=== PATIENT | female | born 1965 | race Hispanic/Latino ===

== ENCOUNTER 2024-08-04 14:00 | Inpatient (IN) | payer SELFPAY ==
[~2024-08-04] VITALS: Ht 154.9 cm; Wt 94.3 kg
[~2024-08-04 14:00] MED LIST: IBUP-2077 PO; LEVO750T68 PO; METF-526 PO; ONDA-245 PO
[2024-08-04 14:51] LABS: APPEARANCE,URINE TURBID (CLEAR); BILIRUBIN,URINE NEGATIVE (NEGATIVE); COLOR,URINE DARK-BROWN (YELLOW); GLUCOSE, URINE (UA) NEGATIVE (NEGATIVE); KETONES,URINE NEGATIVE (NEGATIVE); LEUKOCYTE ESTERASE ,URINE 500 Leu/uL (NEGATIVE); NITRATE,URINE NEGATIVE (NEGATIVE); OCCULT BLOOD,URINE LARGE (NEGATIVE); PROTEIN,URINE 300 mg/dL (NEGATIVE); UROBILINOGEN,URINE 0.2 mg/dL (0.2-1.0)
[2024-08-04 14:53] LABS: ADD UA MICROSCOPIC YES
[2024-08-04 14:55] LABS: BASOPHILS # (AUTO) 0.07 K/uL (0.00-0.20); BASOPHILS % (AUTO) 0.4 % (0.0-5.0); EOSINOPHILS # (AUTO) 0.09 K/uL (0.00-0.70); EOSINOPHILS % (AUTO) 0.5 % (0.0-8.0); IMMATURE GRANULOCYTE ABSOLUTE 0.13 K/uL (0-1); LYMPHOCYTES # (AUTO) 2.5 K/uL (1.0-4.8); MEAN CORPUSCULAR HEMOGLOBIN 24.3 pg (27.0-33.0); MEAN CORPUSCULAR HGB CONC 31.3 g/dL (32.0-36.0); MEAN CORPUSCULAR VOLUME 77.5 fL (79-99); MONOCYTES # (AUTO) 0.9 K/uL (0.1-1.0); MONOCYTES % (AUTO) 5.6 % (3.0-13.0); NEUTROPHILS # (AUTO) 12.8 K/uL (1.8-7.7); NEUTROPHILS % (AUTO) 77.7 % (40.0-77.0); RED BLOOD CELL COUNT(AUTO) 3.87 MIL/uL (4.00-5.50); RED CELL DISTRIBUTION WIDTH 15.8 % (11.0-15.5); WHITE BLOOD COUNT (AUTO) 16.5 K/uL (4.8-10.8)
[2024-08-04] MEDS: 0.9%NACL 1000ML 1,000 ML IV SCH ×3 (15:00→22:42)
[2024-08-04 15:04] LABS: WBC CLUMP MANY /HPF (0-1); WBC,URINE TNTC /HPF (0-1)
[2024-08-04 15:10] LABS: CREATININE 1.3 mg/dL (0.5-1.0); POTASSIUM 4.1 mmol/L (3.5-5.1)
[2024-08-04 15:13] LABS: PLATELET COUNT (AUTO) 818 K/uL (130-400)
[2024-08-04] MEDS ORDERED: IOHEXOL-350 75 ML VIAL IV ONE (15:18)
[2024-08-04 16:07] LABS: BAND NEUTROPHILS % (MANUAL) 4 % (0-2); LYMPHOCYTES % (MANUAL) 11 % (22-44); MAN.DIFF COMMENT-IMPRESSION MANUAL DIFFERENTIAL; MONOCYTES % (MANUAL) 7 % (2-9); SEGMENTED NEUTROPHILS % 78 % (40-70); TOTAL CELLS COUNTED 100; WBC MORPHOLOGY CONSISTENT W/DIFF
[2024-08-04] MEDS: ZOSYN 3.375GM +NS 50ML IV SCH (16:20)
[2024-08-04] MEDS ORDERED: PoTASSium chloRIDE 20MEQ/100ML 100 ML IV PRN (18:00)
[2024-08-04] MEDS ORDERED: PoTASSium chl 10% ELIXIR 20MEQ 20 MEQ/15 ML UDCUP PO PRN (18:00)
[2024-08-04] MEDS: ondanSETRON 4MG INJ IVP PRN (18:27)
[2024-08-04] MEDS: morPHINE 2 MG SYG IVP PRN (18:27)
[2024-08-04] MEDS: INSULIN humuLIN R 100 UNIT/ML 3ML SQ SCH (21:00)
[2024-08-04] MEDS ORDERED: LEVO50CA4 PO (21:11)
[2024-08-04] MEDS ORDERED: TAMS-1 PO (21:11)
[2024-08-04] MEDS ORDERED: LINA5TAB PO (21:11)
[2024-08-04] MEDS: FAMOTIDINE 20MG TAB PO SCH (21:25)
[2024-08-04 21:38] VITALS: BP 102/61; PULSE 77; RESP 18; TEMP 98
[2024-08-04 21:48] VITALS: O2SAT 99
[2024-08-04] MEDS: ZOSYN 3.375GM +NS 50ML IVPB SCH (23:14)
[2024-08-04 23:43] VITALS: BP 110/64; PULSE 74; RESP 17; TEMP 98.4
[2024-08-05 04:00] VITALS: BP 99/60; PULSE 77; RESP 16; TEMP 99.6
[2024-08-05] MEDS ORDERED: 0.9%NACL 50ML IV SCH (04:00)
[2024-08-05 06:09] LABS: BASOPHILS # (AUTO) 0.06 K/uL (0.00-0.20); BASOPHILS % (AUTO) 0.4 % (0.0-5.0); EOSINOPHILS # (AUTO) 0.08 K/uL (0.00-0.70); EOSINOPHILS % (AUTO) 0.5 % (0.0-8.0); HEMATOCRIT 25.7 % (36-48); IMMATURE GRANULOCYTE ABSOLUTE 0.14 K/uL (0-1); LYMPHOCYTES # (AUTO) 1.6 K/uL (1.0-4.8); LYMPHOCYTES % (AUTO) 10.4 % (21.0-51.0); MEAN CORPUSCULAR HEMOGLOBIN 24.7 pg (27.0-33.0); MEAN CORPUSCULAR HGB CONC 30.7 g/dL (32.0-36.0); MEAN CORPUSCULAR VOLUME 80.3 fL (79-99); MONOCYTES % (AUTO) 6.5 % (3.0-13.0); NEUTROPHILS # (AUTO) 12.2 K/uL (1.8-7.7); NEUTROPHILS % (AUTO) 81.3 % (40.0-77.0); PLATELET COUNT (AUTO) 642 K/uL (130-400); RED CELL DISTRIBUTION WIDTH 15.6 % (11.0-15.5)
[2024-08-05 06:50] LABS: MAGNESIUM 2.5 mg/dL (1.80-2.40)
[2024-08-05 08:00] VITALS: BP_SYST 104; BP_SYST 125; BP_DIAS 61; PULSE 71; PULSE 87; RESP 18; RESP 19; TEMP 98.5; TEMP 98.7
[2024-08-05 09:00] VITALS: O2SAT 94
[2024-08-05] MEDS: tamSULOsin HCL 0.4 MG CAP.ER.24H PO SCH (10:13)
[2024-08-05 10:46] LABS: RETICULOCYTE % (AUTO) 1.23 % (0.42-2.23)
[2024-08-05 11:19] LABS: % IRON SATURATION 10.8 % (22-44)
[2024-08-05 12:49] VITALS: BP 94/62; PULSE 69; RESP 18; TEMP 98.7
[2024-08-05 16:00] VITALS: BP 97/63; PULSE 71; RESP 16; TEMP 98.3
[2024-08-05] MEDS: traMADol HCL 50 MG TABLET PO PRN (16:33)
[2024-08-05 20:00] VITALS: BP 99/62; PULSE 78; RESP 17; TEMP 99.6; O2SAT 96
[2024-08-06] VITALS (16 sets, daily range): BP systolic 94–104; BP diastolic 46–69; PULSE 63–79; RESP 17–20; TEMP 98.3–100.8; O2SAT 93–97
[2024-08-06 05:18] LABS: BASOPHILS # (AUTO) 0.03 K/uL (0.00-0.20); BASOPHILS % (AUTO) 0.2 % (0.0-5.0); EOSINOPHILS # (AUTO) 0.11 K/uL (0.00-0.70); EOSINOPHILS % (AUTO) 0.7 % (0.0-8.0); HEMATOCRIT 24.5 % (36-48); IMMATURE GRANULOCYTE ABSOLUTE 0.11 K/uL (0-1); LYMPHOCYTES % (AUTO) 13.5 % (21.0-51.0); MEAN CORPUSCULAR HEMOGLOBIN 24.4 pg (27.0-33.0); MEAN CORPUSCULAR HGB CONC 30.6 g/dL (32.0-36.0); MEAN CORPUSCULAR VOLUME 79.8 fL (79-99); MONOCYTES % (AUTO) 6.5 % (3.0-13.0); NEUTROPHILS # (AUTO) 11.6 K/uL (1.8-7.7); NEUTROPHILS % (AUTO) 78.4 % (40.0-77.0); PLATELET COUNT (AUTO) 664 K/uL (130-400); RED BLOOD CELL COUNT(AUTO) 3.07 MIL/uL (4.00-5.50); RED CELL DISTRIBUTION WIDTH 15.9 % (11.0-15.5); WHITE BLOOD COUNT (AUTO) 14.8 K/uL (4.8-10.8)
[2024-08-06 05:41] LABS: ALBUMIN 1.7 g/dL (3.5-5.0); BILIRUBIN,TOTAL 0.3 mg/dL (0.2-1.0); CREATININE 1.2 mg/dL (0.5-1.0); MAGNESIUM 1.9 mg/dL (1.80-2.40); POTASSIUM 3.8 mmol/L (3.5-5.1); TOTAL PROTEIN, SERUM 7.1 g/dL (6.0-8.3)
[2024-08-06] MEDS: levoTHYROxine 50 MCG TABLET PO SCH (05:41)
[2024-08-06] MEDS: MAGNESIUM 2GM PREMIX 50ML 50 ML IV PRN (05:50)
[2024-08-06] MEDS ORDERED: LACTULOSE 20 GM/30 ML UDCUP PO PRN (10:00)
[2024-08-06] MEDS: linAGLIPtin 5 MG TABLET PO SCH (11:44)
[2024-08-06 13:47] LABS: PARTIAL THROMBOPLASTIN TIME 26.5 SEC (26.3-35.5)
[2024-08-06] MEDS ORDERED: FENTanyl CITRate PF 50 MCG/1 ML 2ML VIAL ONE (13:58)
[2024-08-06] MEDS ORDERED: MIDAZOLAM HCL 1 MG/ML 2ML VIAL ONE (13:58)
[2024-08-06 14:11] LABS: INR 1.03 (0.85-1.15); PROTHROMBIN TIME 11.1 SEC (9.6-11.6)
[2024-08-07] VITALS (7 sets, daily range): BP systolic 89–99; BP diastolic 52–62; PULSE 64–71; RESP 18–20; TEMP 97.2–99.1; O2SAT 95–98
[2024-08-07] MEDS: CYANOCOBALAMIN (VITAMIN B-12) 1,000 MCG TABLET PO SCH (09:05)
[2024-08-08] VITALS (8 sets, daily range): BP systolic 102–119; BP diastolic 55–75; PULSE 53–67; RESP 13–18; TEMP 97.2–98.3; O2SAT 97–98
[2024-08-08 06:50] LABS: BASOPHILS # (AUTO) 0.05 K/uL (0.00-0.20); BASOPHILS % (AUTO) 0.4 % (0.0-5.0); EOSINOPHILS # (AUTO) 0.25 K/uL (0.00-0.70); EOSINOPHILS % (AUTO) 2.2 % (0.0-8.0); HEMATOCRIT 25.2 % (36-48); IMMATURE GRANULOCYTE ABSOLUTE 0.11 K/uL (0-1); LYMPHOCYTES % (AUTO) 17.5 % (21.0-51.0); MEAN CORPUSCULAR HEMOGLOBIN 24.3 pg (27.0-33.0); MEAN CORPUSCULAR HGB CONC 30.2 g/dL (32.0-36.0); MEAN CORPUSCULAR VOLUME 80.5 fL (79-99); MONOCYTES # (AUTO) 0.7 K/uL (0.1-1.0); NEUTROPHILS # (AUTO) 8.2 K/uL (1.8-7.7); NEUTROPHILS % (AUTO) 72.9 % (40.0-77.0); PLATELET COUNT (AUTO) 658 K/uL (130-400); RED BLOOD CELL COUNT(AUTO) 3.13 MIL/uL (4.00-5.50); RED CELL DISTRIBUTION WIDTH 15.9 % (11.0-15.5); WHITE BLOOD COUNT (AUTO) 11.2 K/uL (4.8-10.8)
[2024-08-08 07:01] LABS: ALBUMIN 1.6 g/dL (3.5-5.0); BILIRUBIN,TOTAL 0.2 mg/dL (0.2-1.0); CREATININE 1.1 mg/dL (0.5-1.0); POTASSIUM 3.7 mmol/L (3.5-5.1); TOTAL PROTEIN, SERUM 7.2 g/dL (6.0-8.3)
[2024-08-09] MEDS: acetaMINOPHEN 325 MG TAB PO PRN (00:44)
[2024-08-09 04:12] VITALS: BP 115/71; PULSE 60; RESP 15; TEMP 98
[2024-08-09 08:00] VITALS: BP 109/61; PULSE 61; RESP 18; TEMP 97.2
[2024-08-09 10:20] LABS: HEMATOCRIT 27.1 % (36-48); MEAN CORPUSCULAR HGB CONC 31.4 g/dL (32.0-36.0); MEAN CORPUSCULAR VOLUME 79.7 fL (79-99); RED BLOOD CELL COUNT(AUTO) 3.4 MIL/uL (4.00-5.50); WHITE BLOOD COUNT (AUTO) 11.9 K/uL (4.8-10.8)
[2024-08-09 10:28] LABS: CREATININE 1.1 mg/dL (0.5-1.0); POTASSIUM 3.5 mmol/L (3.5-5.1)
[2024-08-09 11:20] VITALS: BP 105/68; PULSE 85; RESP 18; TEMP 98.2
[2024-08-09] MEDS: MEROPENEM 1 GM in 0.9%NACL 100ML 100 ML IVPB SCH (12:22)
[2024-08-09] MEDS ORDERED: COMPOUND IV MISC 1 EACH IVSOLN MISC PRN (12:30)
[2024-08-09 12:46] VITALS: BP 103/84; PULSE 60; RESP 18; TEMP 98.7
[2024-08-09] MEDS: levoFLOXacin 750 MG/D5W 150ML BAG IV SCH (14:24)
[2024-08-09 16:17] VITALS: BP 121/70; PULSE 63; RESP 18; TEMP 98.6
[2024-08-09 20:00] VITALS: BP 107/62; PULSE 73; RESP 19; TEMP 98.1; O2SAT 95
[2024-08-10] VITALS (8 sets, daily range): BP systolic 109–130; BP diastolic 65–74; PULSE 65–75; RESP 16–19; TEMP 98.2–98.5; O2SAT 94–98
[2024-08-10 04:44] LABS: MEAN CORPUSCULAR HEMOGLOBIN 24.3 pg (27.0-33.0); MEAN CORPUSCULAR HGB CONC 30.4 g/dL (32.0-36.0); RED BLOOD CELL COUNT(AUTO) 3.25 MIL/uL (4.00-5.50); RED CELL DISTRIBUTION WIDTH 15.9 % (11.0-15.5); WHITE BLOOD COUNT (AUTO) 11.8 K/uL (4.8-10.8)
[2024-08-10 04:54] LABS: POTASSIUM 3.6 mmol/L (3.5-5.1)
[2024-08-10] MEDS: PoTASSium chloRIDE 20MEQ ER 20 MEQ ERTAB PO PRN (06:33)
[2024-08-10] MEDS: IRON sUCROse COMPLEX 300 MG in 0.9% NACL 250ML 250 ML IV SCH (20:43)
[2024-08-11 04:00] VITALS: BP 131/75; PULSE 76; RESP 19; TEMP 97.5
[2024-08-11 07:55] VITALS: BP 116/66; PULSE 66; RESP 20; TEMP 98.3
[2024-08-11 08:00] VITALS: O2SAT 96
[2024-08-11] MEDS: CYANOCOBALAMIN (VITAMIN B-12) 1000 MCG/ML 1ML VIAL IM SCH (09:31)
[2024-08-11 11:14] VITALS: BP 122/68; PULSE 65; RESP 20; TEMP 97.8
[2024-08-11] MEDS ORDERED: FOLI1 PO (11:33)
[2024-08-11] MEDS ORDERED: FERS325 PO (11:33)
[2024-08-11] MEDS ORDERED: MECO10005 PO (11:33)
[2024-08-11 12:03] LABS: HEMATOCRIT 30.8 % (36-48); MEAN CORPUSCULAR HEMOGLOBIN 24.5 pg (27.0-33.0); MEAN CORPUSCULAR HGB CONC 29.9 g/dL (32.0-36.0); MEAN CORPUSCULAR VOLUME 82.1 fL (79-99); RED BLOOD CELL COUNT(AUTO) 3.75 MIL/uL (4.00-5.50); RED CELL DISTRIBUTION WIDTH 16.4 % (11.0-15.5); WHITE BLOOD COUNT (AUTO) 13.2 K/uL (4.8-10.8)
[2024-08-11 12:12] LABS: POTASSIUM 3.9 mmol/L (3.5-5.1)
[2024-08-11 14:02] VITALS: BP 108/64; PULSE 68; RESP 20; TEMP 97.1
[2024-08-11] MEDS ORDERED: LEVO750T39 PO (17:07)
== END 2024-08-11 19:00 | disposition home or self-care (01) | DRG 872 ==
LOC: EDH 14:00 → EDHIP 14:01 → 3CH 21:24 → WSH 08-06 14:50 → 3BH 08-09 11:50
PROVIDERS: ADMIT Internal Medicine Sleep Medicine; ATTEND Internal Medicine Sleep Medicine
DX: A41.9 Sepsis, unspecified organism (principal); N13.6 Pyonephrosis; D50.9 Iron deficiency anemia, unspecified; E66.9 Obesity, unspecified; L80 Vitiligo; D69.6 Thrombocytopenia, unspecified; D75.838 Other thrombocytosis; E11.65 Type 2 diabetes mellitus with hyperglycemia; I10 Essential (primary) hypertension; N20.0 Calculus of kidney; Z87.442 Personal history of urinary calculi; Z91.199 Patient's noncompliance with other medical treatment and regimen due to unspecified reason; Z68.39 Body mass index [BMI] 39.0-39.9, adult; Z79.899 Other long term (current) drug therapy; Z79.1 Long term (current) use of non-steroidal anti-inflammatories (NSAID)
CPT/HCPCS: 36415; 74177; 75989; 78700; 80048; 80053; 81001; 82607; 82728; 82746; 82948; 83605; 83735; 84145; 84550; 85025; 85027; 85610; 85730; 86038; 86140; 86215; 86235; 87040; 87071; 87086; 87186; 87205; 96365; 96366; 96375; A9562; G0378; J1756; J1956; J2185; J2250; J2270; J2405; J2543; J3010; J3420; J3475; J7030; J7050; Q9967

== ENCOUNTER 2024-08-14 21:17 | Inpatient (IN) | payer SELFPAY ==
[~2024-08-14] VITALS: Ht 162.6 cm; Wt 88.9 kg
[~2024-08-14 21:17] MED LIST changes: +FERS325 PO; +FOLI1 PO; -IBUP-2077 PO; +LEVO50CA4 PO; +LEVO750T39 PO; -LEVO750T68 PO; +LINA5TAB PO; +MECO10005 PO; +TAMS-1 PO
[2024-08-14 22:32] LABS: BASOPHILS # (AUTO) 0.05 K/uL (0.00-0.20); BASOPHILS % (AUTO) 0.4 % (0.0-5.0); EOSINOPHILS # (AUTO) 0.12 K/uL (0.00-0.70); EOSINOPHILS % (AUTO) 0.8 % (0.0-8.0); HEMATOCRIT 29.2 % (36-48); LYMPHOCYTES # (AUTO) 2.1 K/uL (1.0-4.8); LYMPHOCYTES % (AUTO) 14.8 % (21.0-51.0); MEAN CORPUSCULAR HGB CONC 31.5 g/dL (32.0-36.0); MEAN CORPUSCULAR VOLUME 79.3 fL (79-99); MONOCYTES # (AUTO) 0.9 K/uL (0.1-1.0); MONOCYTES % (AUTO) 6.6 % (3.0-13.0); NEUTROPHILS % (AUTO) 76.7 % (40.0-77.0); RED BLOOD CELL COUNT(AUTO) 3.68 MIL/uL (4.00-5.50); WHITE BLOOD COUNT (AUTO) 14.3 K/uL (4.8-10.8)
[2024-08-14 22:39] LABS: CREATININE 1.2 mg/dL (0.5-1.0); POTASSIUM 3.5 mmol/L (3.5-5.1)
[2024-08-14 23:11] LABS: PLATELET COUNT (AUTO) 702 K/uL (130-400)
[2024-08-15] VITALS (8 sets, daily range): BP systolic 99–118; BP diastolic 61–70; PULSE 58–76; RESP 16–20; TEMP 98.2–99.1; O2SAT 98–99
[2024-08-15 00:07] LABS: PLATELET MORPHOLOGY COMMENT MARKED INCREASE
[2024-08-15] MEDS ORDERED: morPHINE 2 MG SYG IVP PRN (00:30)
[2024-08-15] MEDS ORDERED: ondanSETRON 4MG INJ IVP PRN (00:30)
[2024-08-15] MEDS ORDERED: acetaMINOPHEN 325 MG TAB PO PRN (00:30)
[2024-08-15] MEDS ORDERED: INSULIN humuLIN R 100 UNIT/ML 3ML SQ PRN (00:30)
[2024-08-15] MEDS: 0.9%NACL 1000ML 1,000 ML IV ONE (01:06)
[2024-08-15] MEDS: morPHINE 4 MG SYG IVP ONE (01:06)
[2024-08-15] MEDS: ondanSETRON 4MG INJ IVP ONE (01:06)
[2024-08-15] MEDS: ZOSYN 3.375GM +NS 50ML IV ONE (01:06)
[2024-08-15 02:15] LABS: HEMOGLOBIN A1C 7.3 % (4.0-6.0)
[2024-08-15] MEDS ORDERED: GLUCAGON 1MG KIT 1 MG ML IM PRN (02:30)
[2024-08-15] MEDS ORDERED: DEXTROSE 50%-WATER 50 ML DISP.SYRIN IV PRN (02:30)
[2024-08-15] MEDS: INSULIN humuLIN R 100 UNIT/ML 3ML SQ SCH (07:30)
[2024-08-15] MEDS: CYANOCOBALAMIN (VITAMIN B-12) 1,000 MCG TABLET PO SCH (08:46)
[2024-08-15] MEDS: FERROUS SULFATE 325 MG TABLET.DR PO SCH (08:46)
[2024-08-15] MEDS: levoTHYROxine 50 MCG TABLET PO SCH (08:46)
[2024-08-15] MEDS: tamSULOsin HCL 0.4 MG CAP.ER.24H PO SCH (08:46)
[2024-08-15] MEDS: FOLic ACID 1 MG TABLET PO SCH (08:46)
[2024-08-15] MEDS: FAMOTIDINE 20MG TAB PO SCH (08:46)
[2024-08-15] MEDS: linAGLIPtin 5 MG TABLET PO SCH (08:46)
[2024-08-15] MEDS: ZOSYN 3.375GM +NS 50ML IVPB SCH (08:47)
[2024-08-15] MEDS ORDERED: NON-FORMULARY MEDICATION 1 EACH (Ferrous Sulfate 325 MG) PO SCH (09:00)
[2024-08-15] MEDS ORDERED: NON-FORMULARY MEDICATION 1 EACH (Mecobalamin (B12 Active) 1,000 MCG) PO SCH (09:00)
[2024-08-15] MEDS ORDERED: NON-FORMULARY MEDICATION 1 EACH (Levothyroxine Sodium (Levothyroxine) 50 MCG) PO SCH (09:00)
[2024-08-15 11:29] LABS: INR 1.06 (0.85-1.15); PROTHROMBIN TIME 11.4 SEC (9.6-11.6)
[2024-08-15 11:30] LABS: PARTIAL THROMBOPLASTIN TIME 26.7 SEC (26.3-35.5)
[2024-08-15] MEDS ORDERED: LIDOCAINE HCL 400MG/20ML VIAL ONE (14:41)
[2024-08-15] MEDS ORDERED: IOHEXOL-350 50ML VIAL IV ONE (14:42)
[2024-08-15] MEDS ORDERED: HEParin-NS 1,000 UNIT/500 ML 500 ML IV ONE (14:42)
[2024-08-15] MEDS ORDERED: MIDAZOLAM HCL 1 MG/ML 2ML VIAL ONE (15:06)
[2024-08-15] MEDS ORDERED: FENTanyl CITRate PF 50 MCG/1 ML 2ML VIAL ONE (15:06)
[2024-08-15] MEDS ORDERED: CYAN-52 PO (15:45)
[2024-08-15] MEDS ORDERED: FERR324T4 PO (15:45)
[2024-08-15] MEDS: PoTASSium chloRIDE 20MEQ ER 20 MEQ ERTAB PO ONE (20:57)
[2024-08-15] MEDS ORDERED: PHARMACY COMMUNICATION MISC SCH (22:00)
[2024-08-16 04:06] VITALS: BP 103/62; PULSE 69; RESP 19; TEMP 98.5
[2024-08-16 05:23] LABS: BASOPHILS # (AUTO) 0.07 K/uL (0.00-0.20); BASOPHILS % (AUTO) 0.5 % (0.0-5.0); EOSINOPHILS # (AUTO) 0.13 K/uL (0.00-0.70); EOSINOPHILS % (AUTO) 0.9 % (0.0-8.0); HEMATOCRIT 27.4 % (36-48); IMMATURE GRANULOCYTE ABSOLUTE 0.09 K/uL (0-1); LYMPHOCYTES # (AUTO) 2.1 K/uL (1.0-4.8); LYMPHOCYTES % (AUTO) 14.3 % (21.0-51.0); MEAN CORPUSCULAR HEMOGLOBIN 24.7 pg (27.0-33.0); MEAN CORPUSCULAR VOLUME 79.7 fL (79-99); MONOCYTES # (AUTO) 0.9 K/uL (0.1-1.0); MONOCYTES % (AUTO) 6.1 % (3.0-13.0); NEUTROPHILS # (AUTO) 11.4 K/uL (1.8-7.7); NEUTROPHILS % (AUTO) 77.6 % (40.0-77.0); PLATELET COUNT (AUTO) 684 K/uL (130-400); RED BLOOD CELL COUNT(AUTO) 3.44 MIL/uL (4.00-5.50); RED CELL DISTRIBUTION WIDTH 17.2 % (11.0-15.5); WHITE BLOOD COUNT (AUTO) 14.7 K/uL (4.8-10.8)
[2024-08-16 05:38] LABS: BILIRUBIN,TOTAL 0.4 mg/dL (0.2-1.0); CREATININE 1.2 mg/dL (0.5-1.0); MAGNESIUM 2.1 mg/dL (1.80-2.40); TOTAL PROTEIN, SERUM 7.9 g/dL (6.0-8.3)
[2024-08-16 07:54] VITALS: BP 108/56; PULSE 64; RESP 16; TEMP 98.3
[2024-08-16 08:20] VITALS: O2SAT 94
[2024-08-16 12:00] VITALS: BP 111/70; PULSE 64; RESP 16; TEMP 98
[2024-08-16] MEDS ORDERED: FAMO20TA8 PO (13:35)
== END 2024-08-16 16:00 | disposition home or self-care (01) | DRG 698 ==
LOC: EDH 21:17 → EDHIP 21:18 → 3BH 08-15 02:07
PROVIDERS: ADMIT Hospitalist; ATTEND Hospitalist
PROC: 3E0K3GC Introduction of Other Therapeutic Substance into Genitourinary Tract, Percutaneous Approach (ICD-10-PCS; principal; 2024-08-15)
DX: T83.84XA Pain due to genitourinary prosthetic devices, implants and grafts, initial encounter (principal); N15.1 Renal and perinephric abscess; N17.9 Acute kidney failure, unspecified; N13.6 Pyonephrosis; E87.1 Hypo-osmolality and hyponatremia; T83.022A Displacement of nephrostomy catheter, initial encounter; N20.0 Calculus of kidney; I10 Essential (primary) hypertension; E11.65 Type 2 diabetes mellitus with hyperglycemia; D75.839 Thrombocytosis, unspecified; D50.9 Iron deficiency anemia, unspecified; E05.90 Thyrotoxicosis, unspecified without thyrotoxic crisis or storm; Y73.2 Prosthetic and other implants, materials and accessory gastroenterology and urology devices associated with adverse incidents; Y83.3 Surgical operation with formation of external stoma as the cause of abnormal reaction of the patient, or of later complication, without mention of misadventure at the time of the procedure; Z87.442 Personal history of urinary calculi
CPT/HCPCS: 36415; 49424; 74176; 76080; 80048; 80053; 82948; 83036; 83605; 83735; 84145; 85025; 85610; 85730; 87040; 96375; G0378; J1644; J2250; J2270; J2405; J2543; J3010; J3490; J7030; Q9967